=== PATIENT | male | born 1940 | race Caucasian/White ===

== ENCOUNTER 2017-02-14 07:20 | Inpatient (IN) | payer MEDICARE ==
[~2017-02-14 07:20] MED LIST: Buffered Lidocaine 0.9% SYRIN* 5 ML/SYR SYRINGE INTRADERM ONE; NS 0.9% 1000 ML* 1,000 ML IV SCH
[2017-02-14] MEDS ORDERED: Buffered Lidocaine 0.9% SYRIN* 5 ML/SYR SYRINGE ONE (07:26)
[2017-02-14] MEDS ORDERED: ceFAZolin 2 GM PREMIX (*) 2 GM/50 ML BAG IVPB ONE ×2 (08:18→09:53)
[2017-02-14] MEDS ORDERED: Gadoteridol* (CONTRAST) 279.3 MG/ML 10 ML IV ONE (08:48)
--- NOTE | 2017-02-14 10:01 | RAD ---
HISTORY: Malignant neoplasm of frontal lobe COMPARISONS: MRI dated January 26, 2017 TECHNIQUE: The following sequences were obtained of the head: 3-D contrast enhanced spoiled gradient echo imaging was performed of the head with fiducial markers for the purposes of intraoperative navigation. FINDINGS: HEMORRHAGE/INFARCT: There is no hemorrhage or acute infarct. MASSES/SHIFT: Again noted is a left parietal mass further described below. There is no shift. EXTRA-AXIAL SPACES/MENINGES: There are no extra-axial fluid collections. SULCI AND VENTRICLES: The sulci and ventricles are normal in size and position for the patient's stated age. CEREBRUM: Again noted is an enhancing mass of the left posterior frontal lobe, with a second smaller focus of enhancement of the cortex of the left superior frontal gyrus. This is stable from the previous examination. Dilated perivascular spaces are noted. BRAINSTEM: There are no focal parenchymal abnormalities. CEREBELLUM: There are no focal parenchymal abnormalities. The cerebellar tonsils are normal in size and position. SELLA: The sella is normal. PINEAL: The pineal region is clear. CP ANGLE/TEMPORAL BONES: The labyrinthine structures are grossly normal. VESSELS: The vessels are unremarkable. 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 DIFFUSION ABNORMALITIES: No diffusion-weighted images are submitted for review. PARANASAL SINUSES/MASTOIDS: The paranasal sinuses are clear. ORBITS: The orbits are unremarkable. BONES AND SOFT TISSUE: No bone or soft tissue abnormalities are noted. OTHER: None IMPRESSION: AGAIN NOTED IS AN ENHANCING LESION OF THE LEFT POSTERIOR FRONTAL LOBE WITH A SMALL SECOND FOCUS OF CORTICAL ENHANCEMENT
[2017-02-14] MEDS ORDERED: fentaNYL* 50 MCG/ML 2 ML VIAL (100 MCG VIAL) ONE (10:47)
[2017-02-14] MEDS ORDERED: Midazolam* 1 MG/ML 2 ML VIAL (2 MG) ONE (10:47)
[2017-02-14] MEDS ORDERED: Famotidine IV* 10 MG/ML 2 ML (20 mg) ONE (12:08)
[2017-02-14] MEDS ORDERED: Lidocaine 2% PF * 5 ML VIAL ONE ×2 (12:38→13:35)
[2017-02-14] MEDS ORDERED: Rocuronium* 10 MG/ML VIAL ONE ×2 (12:47→13:54)
[2017-02-14] MEDS ORDERED: Lidocaine 1% MPF wEPI 200,000* 30 ML SDV ONE (12:59)
[2017-02-14] MEDS ORDERED: Thrombin 5,000 UNITS* 1 APPLIC KIT - topical use - TOPICAL ONE (12:59)
[2017-02-14] MEDS ORDERED: Acetaminophen TAB* 325 MG PO PRN ×2 (13:31→14:05)
[2017-02-14] MEDS ORDERED: fentaNYL* 50 MCG/ML 2 ML VIAL (100 MCG VIAL) IV PRN (13:31)
[2017-02-14] MEDS ORDERED: Ondansetron INJ* 2 MG/ML VIAL IV PRN ×2 (13:31→14:05)
[2017-02-14] MEDS ORDERED: DiMENhydriNATE IV* 50 MG/ML VIAL IV PUSH PRN (13:31)
[2017-02-14] MEDS ORDERED: Propofol* 10 MG/ML 20 ML BTL IV PUSH ONE (13:38)
[2017-02-14] MEDS ORDERED: Ondansetron INJ* 2 MG/ML VIAL ONE (13:38)
[2017-02-14] MEDS ORDERED: HYDROcodone/ACETAMIN 5-325 MG* 1 TAB PO PRN ×2 (14:05→14:22)
[2017-02-14] MEDS ORDERED: Labetalol IV* 5 MG/ML 20 ML VIAL IV PUSH PRN (14:13)
[2017-02-14] MEDS ORDERED: Morphine INJ* 2 MG/ML 1 ML SYRINGE (TWO MG - NEW SYRINGE VERSION) IV PRN (14:14)
[2017-02-14] MEDS: Insulin LISPRO* 1 UNITS UNIT SUBCUT SCH ×2 (18:35→21:37)
--- NOTE | 2017-02-15 08:10 | PN ---
Progress Note - Progress Note Date of Service: 02/15/17 SOAP: Subjective: []POD # 1 Patient and daughter discussed diagnosis yesterday [facility] confirms GBM Objective: []Mild paresis prox RLE,moderate distally Dressing saturated Assessment: []Long discussion re treatment options Plan: []D/C today D/C instructions given Patient accepts risk of going home alone which he understands could be complicated by fall,seizure,etc
[2017-02-15] MEDS: Insulin LISPRO* 1 UNITS UNIT SUBCUT SCH ×4 (08:49→21:45)
[2017-02-15] MEDS: Sertraline* 25 MG TAB PO SCH (08:49)
[2017-02-15] MEDS: Metoprolol Succinate XL TAB* 50 MG PO SCH (08:49)
[2017-02-15] MEDS: Lisinopril TAB* 5 MG PO SCH (08:49)
[2017-02-15] MEDS ORDERED: Dexamethasone IV* 4 MG in NS 0.9% 50 ML* 50 ML IVPB SCH (10:00)
[2017-02-15] MEDS: Dexamethasone IV* 4 MG/ML 1 ML (4 MG) IV SLOW PU SCH ×2 (10:54→17:28)
[2017-02-15] MEDS: Nystatin SUSPENSION* 100000 UNITS/ML 5 ML UDC PO SCH ×3 (13:49→21:45)
--- NOTE | 2017-02-15 15:51 | RAD ---
INDICATION: Status post left frontal lobe biopsy COMPARISON: Brain MRI January 26, 2017 TECHNIQUE: Contiguous axial sections of the brain were obtained from the skull base to the vertex without contrast. FINDINGS: Postsurgical findings include craniotomy at the left parietal lobe and surgical clips overlying the scalp. There is gas in the extra-axial space. At the left of midline parietal lobe there is a focus of gas likely corresponding to the biopsy site. The brain is otherwise normal in appearance with appropriate robles-white matter differentiation. There is no acute intracranial hemorrhage. No significant focal osseous abnormality is present. The visualized portion of the paranasal sinuses and mastoid air cells appear clear. IMPRESSION: Expected findings status post brain biopsy.
--- NOTE | 2017-02-15 21:10 | OP ---
OPERATIVE REPORT: DATE OF OPERATION: 02/14/17 DATE OF : 44 SURGEON: Robby Wilkinson MD CEMETERY VAULT INSTALLER: RENEE Oropeza ANESTHESIA: General. PRE-OP DIAGNOSIS: Left parietal tumor. POST-OP DIAGNOSIS: Left parietal glioma. OPERATIVE PROCEDURE: Left parietal azul hole biopsy of left parietal tumor with stereotactic navigat ion. DESCRIPTION OF PROCEDURE: The patient had undergone preoperative stereotactic imaging after fiducial markers had been placed on his scalp. These images were transported to the [employer] tion System and a plan developed for biopsying of a left parietal mass. After satisfactory general a nesthesia was obtained, the left side of the head was clipped, prepped, and draped in a sterile emma r for a left parietal exposure. The initial step in the procedure was registration of a stereotactic navigation plan utilizing the [employer] system. Following registration, an entry point was selected in the left parietal region and a 4-cm incision outlined approximately 4 cm to the left of midline and extending to the midline. A single azul hole was then placed and the stereotactic system attached to the skull utilizing the small screws. Utilizing a navigation system, a biopsy was then carried out with several pieces of tissue being sent for frozen section diagnosis. The frozen section diagnosis was consistent with a high-grade gliomatous tumor. Multiple additional pieces were then taken for pe rmanent section. The wound was then irrigated after which a piece of Gelfoam was placed over the dur al defect. The galea was then reapproximated with 3-0 Vicryl suture and the skin closed with skin cl ips. The estimated blood loss was less than 50 cc and the final sponge, padding, and needle counts w ere correct. The patient was taken to the recovery room, extubated and in stable condition. [id number]/[facility] #: [id number]
[2017-02-16] MEDS: Dexamethasone IV* 4 MG/ML 1 ML (4 MG) IV SLOW PU SCH ×2 (02:37→09:41)
[2017-02-16] MEDS: Metoprolol Succinate XL TAB* 50 MG PO SCH (09:40)
[2017-02-16] MEDS: Lisinopril TAB* 5 MG PO SCH (09:40)
[2017-02-16] MEDS: Sertraline* 25 MG TAB PO SCH (09:40)
[2017-02-16] MEDS: Nystatin SUSPENSION* 100000 UNITS/ML 5 ML UDC PO SCH ×4 (09:40→20:54)
[2017-02-16] MEDS: Insulin LISPRO* 1 UNITS UNIT SUBCUT SCH ×4 (09:41→21:50)
[2017-02-16] MEDS: Dexamethasone TAB* 4 MG PO SCH ×2 (13:28→20:54)
[2017-02-17] MEDS: Dexamethasone TAB* 4 MG PO SCH (09:12)
[2017-02-17] MEDS: Metoprolol Succinate XL TAB* 50 MG PO SCH (09:12)
[2017-02-17] MEDS: Lisinopril TAB* 5 MG PO SCH (09:12)
[2017-02-17] MEDS: Sertraline* 25 MG TAB PO SCH (09:12)
[2017-02-17] MEDS: Nystatin SUSPENSION* 100000 UNITS/ML 5 ML UDC PO SCH ×4 (09:13→20:52)
[2017-02-17] MEDS: Insulin LISPRO* 1 UNITS UNIT SUBCUT SCH ×4 (09:13→21:02)
--- NOTE | 2017-02-18 07:54 | PN ---
Progress Note - Progress Note Date of Service: 02/16/17 SOAP: Subjective: []POD # 2 Complains of persistent leg weakness No Headache Long discussion re probable path and prognosis Objective: []RLE weakness Dressing intact Assessment: []Stable post biopsy Plan: []Patient would like to go home Plan to discuss with family later in day
--- NOTE | 2017-02-18 07:57 | PN ---
Progress Note - Progress Note Date of Service: 02/17/17 SOAP: Subjective: []POD # 3 Pateient started on Decadron Feels RLE better,however blood glucose spiked >450 Adamant about returning home Long family discussion with daughter Objective: []RLE weakness persists CT shows no bleed in tumor bed Assessment: []Stable Plan: []Patient unable to ambulate independently Will need placement if he decides against aggressive treatment
--- NOTE | 2017-02-18 07:59 | PN ---
Progress Note - Progress Note Date of Service: 02/18/17 SOAP: Subjective: []Patient notes worsening leg function since decadron stopped Has made decision for hospice bed MOLST form signed Objective: []Moderate weakness RLE Neuro otherwise intact Assessment: []Stable Plan: []Patient now DNR Will arrange for D/C to hospice when bed available
[2017-02-18] MEDS: Insulin LISPRO* 1 UNITS UNIT SUBCUT SCH ×4 (09:04→21:51)
[2017-02-18] MEDS: Lisinopril TAB* 5 MG PO SCH (09:05)
[2017-02-18] MEDS: Metoprolol Succinate XL TAB* 50 MG PO SCH (09:05)
[2017-02-18] MEDS: Nystatin SUSPENSION* 100000 UNITS/ML 5 ML UDC PO SCH ×4 (09:06→21:52)
[2017-02-18] MEDS: Sertraline* 25 MG TAB PO SCH (09:06)
[2017-02-19] MEDS: Insulin LISPRO* 1 UNITS UNIT SUBCUT SCH ×4 (08:44→20:51)
[2017-02-19] MEDS: Nystatin SUSPENSION* 100000 UNITS/ML 5 ML UDC PO SCH ×4 (08:44→20:53)
[2017-02-19] MEDS: Lisinopril TAB* 5 MG PO SCH (08:46)
[2017-02-19] MEDS: Metoprolol Succinate XL TAB* 50 MG PO SCH (08:46)
[2017-02-19] MEDS: Sertraline* 25 MG TAB PO SCH (08:46)
[2017-02-20] MEDS: Nystatin SUSPENSION* 100000 UNITS/ML 5 ML UDC PO SCH ×4 (08:53→21:51)
[2017-02-20] MEDS: Lisinopril TAB* 5 MG PO SCH (09:00)
[2017-02-20] MEDS: Metoprolol Succinate XL TAB* 50 MG PO SCH (09:00)
[2017-02-20] MEDS: Sertraline* 25 MG TAB PO SCH (09:01)
[2017-02-20] MEDS: Insulin LISPRO* 1 UNITS UNIT SUBCUT SCH ×4 (09:01→22:02)
--- NOTE | 2017-02-20 09:48 | PN ---
Progress Note - Progress Note Date of Service: 02/20/17 SOAP: Subjective: [S/p left parietal brain biopsy, POD #6. Patient expresses understanding that he will likely require hospice. He denies headaches, nausea, and pain at the incision. Persistent lower extremity weakness. No new complaints. ] Objective: [ Vital Signs: Temp Pulse Resp BP Pulse Ox 96.8 F 73 16 133/74 99 02/20/17 07:36 02/20/17 07:36 02/20/17 07:36 02/20/17 07:36 02/20/17 07:36 General: Alert and in no distress. Depressed affect. Neuro: RLE weakness. Incision: Clean and without swelling or erythema. Laxmi in place. ] Assessment: [Patient is stable. Awaiting final pathology report.] Plan: [1. Hospice when bed is available. 2. Will discuss results of pathology with the patient when available. ]
--- NOTE | 2017-02-20 15:40 | PN ---
Progress Note - Progress Note Date of Service: 02/20/17 SOAP: Subjective: []POD # 6 Doing about the same Final path available -GBM Discussed with patient and daughter Objective: []RLE paresis Wound OK Assessment: []Satis post op course Plan: []D/C to hospice when bed available
[2017-02-21] MEDS: Insulin LISPRO* 1 UNITS UNIT SUBCUT SCH ×4 (09:11→22:10)
[2017-02-21] MEDS: Sertraline* 25 MG TAB PO SCH (09:11)
[2017-02-21] MEDS: Nystatin SUSPENSION* 100000 UNITS/ML 5 ML UDC PO SCH ×4 (09:11→22:11)
[2017-02-21] MEDS: Lisinopril TAB* 5 MG PO SCH (09:11)
[2017-02-21] MEDS: Metoprolol Succinate XL TAB* 50 MG PO SCH (09:11)
--- NOTE | 2017-02-21 09:18 | PN ---
Progress Note - Progress Note Date of Service: 02/21/17 SOAP: Subjective: [S/p left parietal brain biopsy, POD #7. Final pathology results conclude GBM. Patient is feeling well this morning. No pain and no new complaints. RLE weakness.] Objective: [Vital Signs: Temp Pulse Resp BP Pulse Ox 98.3 F 80 18 109/66 98 02/21/17 07:22 02/21/17 07:22 02/21/17 08:00 02/21/17 07:22 02/21/17 07:22 General: Sitting on bedside eating breakfast. No distress. Neuro: RLE weakness unchanged. Incision: Laxmi removed from incision today without complication. No swelling , erythema or infection. ] Assessment: [Satisfactory post-op course. Dr. Wilkinson discussed pathology with the patient and his daughter yesterday. ] Plan: [1. Awaiting hospice bed availability. 2. May gently wash head and incision site. ]
--- NOTE | 2017-02-22 07:32 | PN ---
Progress Note - Progress Note Date of Service: 02/22/17 SOAP: Subjective: []Remains stable Awaiting D/C plans to be completed Objective: []Wound OK Laxmi out Right LE weakness persists Assessment: []Stable post op course Plan: []D/C when bed available
[2017-02-22] MEDS: Nystatin SUSPENSION* 100000 UNITS/ML 5 ML UDC PO SCH (08:32)
[2017-02-22] MEDS: Metoprolol Succinate XL TAB* 50 MG PO SCH (08:33)
[2017-02-22] MEDS: Lisinopril TAB* 5 MG PO SCH (08:33)
[2017-02-22] MEDS: Sertraline* 25 MG TAB PO SCH (08:33)
[2017-02-22] MEDS: Insulin LISPRO* 1 UNITS UNIT SUBCUT SCH ×4 (09:11→22:08)
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
--- NOTE | 2017-02-23 07:55 | PN ---
Progress Note - Progress Note Date of Service: 02/23/17 SOAP: Subjective: [S/p left parietal brain biopsy, POD #7. Patient feeling well. Persistent and unchanged RLE weakness. Denies headache, pain, nausea.] Objective: [ Vital Signs: Temp Pulse Resp BP Pulse Ox 97.8 F 71 16 123/83 100 02/23/17 03:25 02/23/17 03:25 02/23/17 03:25 02/23/17 03:25 02/23/17 03:25 General: Alert and oriented. Laying comfortably in bed. Neuro: RLE weakness. Incision: Intact, clean, without swelling or infection.] Assessment: [Satisfactory post-op. Patient diagnosed with GBM. ] Plan: [1. [facility]
[2017-02-23] MEDS: Lisinopril TAB* 5 MG PO SCH (08:53)
[2017-02-23] MEDS: Metoprolol Succinate XL TAB* 50 MG PO SCH (08:53)
[2017-02-23] MEDS: Sertraline* 25 MG TAB PO SCH (08:53)
[2017-02-23] MEDS: Insulin LISPRO* 1 UNITS UNIT SUBCUT SCH (08:54)
[2017-02-23 09:34] VITALS: BP 100/64
--- NOTE | 2017-02-24 17:54 | DS ---
DISCHARGE SUMMARY: DATE OF ADMISSION: 02/14/17 DATE OF DISCHARGE: 02/23/17 ATTENDING PHYSICIAN: Dr. Wilkinson * (DICTATED BY RENEE ROPER) DISCHARGE DIAGNOSIS: Left parietal brain mass. SPECIAL PROCEDURES: Left parietal brain biopsy. HOSPITAL COURSE: This 77-year-old male was previously admitted for progressively worsening right lower extremity and right-sided weakness. During that admission, he was found to have a left parietal brain mass. He wished to pursue workup of his brain mass as an outpatient and was discharged home to follow up with Oncology as an outpatient. He presented to the neurosurgical office for additional consult and discussion of biopsy of the brain mass. It was decided that he would proceed with the surgery and on the day of admission he was taken to surgery where under general anesthesia, a biopsy of the left parietal brain mass was obtained using stereotactic navigation. Postoperatively , he was feeling well. He denied headache, pain, nausea, vomiting, and change in weakness. Over the next several postoperative days, he continued to feel well and the right-sided weakness remained persistent and unchanged. He is eating, drinking, and voiding without difficulty. Mental status remains stable and he was doing well postoperatively. Also, over the next several postoperative days, discussion took place with Dr. Wilkinson, the patient and the patient's daughter regarding treatment options after the final pathology is reported. On 02/20/17, the final pathology of the biopsy was reported and a glioblastoma multiforme was diagnosed. Further discussion took place with the patient and Dr. Wilkinson and the patient's daughter regarding treatment options and the patient had decided that he would not pursue any aggressive measures for prolonging life. He is decided that he wished to pursue hospice care. Social work and case management were able to assist and obtaining a hospice placement for this patient at [facility]. On 02/23/17, the patient was discharged to [facility] via ambulance. DISCHARGE MEDICATIONS: The patient will resume all home medications and these were prescribed electronically to [facility]. 1. Aspirin 81 mg one tab by mouth every morning. 2. Lisinopril 5 mg one tab by mouth every morning. 3. Metformin 500 mg one tab by mouth twice daily. 4. Metoprolol succinate XL 50 mg one tab by mouth every morning. 5. Sertraline 25 mg one tab by mouth every morning. RENEE ROPER [id number]/[facility] #: [id number] [facility]ITAL[facility]icki
== END 2017-02-23 10:33 | disposition hospice, home (50) | DRG 55 ==
LOC: OR 07:20 → INTOOBSV 14:05 → SSU 14:05 → OBSVTOIN 02-15 12:36
PROVIDERS: ADMIT Neurological Surgery; ATTEND Neurological Surgery
PROC: 8E09XBZ Computer Assisted Procedure of Head and Neck Region (ICD-10-PCS; principal; 2017-02-16)
PROC: 00B03ZX Excision of Brain, Percutaneous Approach, Diagnostic (ICD-10-PCS; 2017-02-16)
DX: C71.3 Malignant neoplasm of parietal lobe (principal); G81.91 Hemiplegia, unspecified affecting right dominant side; I42.9 Cardiomyopathy, unspecified; I48.91 Unspecified atrial fibrillation; H26.9 Unspecified cataract; I08.0 Rheumatic disorders of both mitral and aortic valves; E11.9 Type 2 diabetes mellitus without complications; I10 Essential (primary) hypertension; Z82.49 Family history of ischemic heart disease and other diseases of the circulatory system; Z82.3 Family history of stroke; Z80.3 Family history of malignant neoplasm of breast; Z88.8 Allergy status to other drugs, medicaments and biological substances; Z79.84 Long term (current) use of oral hypoglycemic drugs; Z79.82 Long term (current) use of aspirin; Z66 Do not resuscitate
CPT/HCPCS: 36415; 70450; 70552; 82947; 88307; 88331; 88333; 88341; 88342; A9270-GY; A9579; J0690; J1100; J2001; J2250; J2405; J2704; J3010; J8540